=== PATIENT | male | born 2000 | race Hispanic/Latino ===

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

== ENCOUNTER 2018-02-27 19:40 | Emergency (ER) | payer BC ==
[2018-02-27 19:45] VITALS: BMI 24.4
[2018-02-27 19:56] VITALS: TEMP 98.1
[2018-02-27] MEDS ORDERED: levETIRAcetam 1,000 MG in Sodium Chloride 0.9% 100 ML IV ONE (19:56)
[2018-02-27] MEDS ORDERED: Sodium Chloride 0.9% 1,000 ML IV STA (19:56)
--- NOTE | 2018-02-27 20:01 | ED PDOC ---
Arrival/HPI - General Historian: Patient, Parent, Family, EMS EM Caveat: Other (post ictal) <Artie Nguyễn - Last Filed: 02/27/18 20:40> <Suhas Andrade - Last Filed: 02/27/18 23:14> - General Time Seen by Provider: 02/27/18 19:53 - History of Present Illness Narrative History of Present Illness (Text): 02/27/18 19:58 17 y/o male, FS 115, pmh including seizure which he is on keppra 500mg po bid but non compliance, neurologist Dr. Reinoso from [place], [facility], postictal stage upon arrival, biba for seizure episode about 1 hour ago. Pt. was found sitting on the chair at work, had jerking seizure episode at work which he fall from the chair and fall to the ground, episode lasted couple minutes, woke up and noted to be confused when ambulance arrive. Pt. has no alcohol or drug abuse history except he smokes marijuanna occasionally. Pt. has no recent head or neck injury prior to the seizure, no chest pain or shortness of breath, no rash, no other medical or psychological complaints. Note: pt. has not gotten his license yet as per mother so he is not driving. ( Artie Nguyễn) Past Medical History - Provider Review Nursing Documentation Reviewed: Yes - Psychiatric Hx Substance Use: Yes (xanax,marijuana) <rAtie Nguyễn - Last Filed: 02/27/18 20:40> Family/Social History - Physician Review Nursing Documentation Reviewed: Yes Family/Social History: Unknown Family HX Smoking Status: Light Smoker < 10 Cigarettes Daily Hx Alcohol Use: Yes Hx Substance Use: Yes (xanax,marijuana) <Artie Nguyễn - Last Filed: 02/27/18 20:40> Allergies/Home Meds <Artie Nguyễn - Last Filed: 02/27/18 20:40> <Suhas Andrade - Last Filed: 02/27/18 23:14> Allergies/Adverse Reactions: Allergies No Known Allergies Allergy (Verified 02/27/18 19:45) Review of Systems - Review of Systems Systems not reviewed;Unavailable: Other (postictal stage) Skin: absent: Rash, Pruritis <Artie Nguyễn - Last Filed: 02/27/18 20:40> Physical Exam Vital Signs Reviewed: Yes Temperature: Afebrile Blood Pressure: Normal Pulse: Regular Respiratory Rate: Normal Appearance: Positive for: Well-Appearing, Non-Toxic, Comfortable Pain Distress: None Mental Status: Positive for: other (postictal) - Systems Exam Head: Present: Tenderness (on the posterior occipital region). No: Contusion, Swelling, Ecchymosis, Abrasion, Laceration, Other Pupils: Present: PERRL Extroacular Muscles: Present: EOMI Conjunctiva: Present: Normal Ears: Present: NORMAL TM, Normal Canal. No: Erythema Mouth: Present: Moist Mucous Membranes Pharnyx: No: ERYTHEMA, EXUDATE, TONSILS ENLARGED Nose (External): Present: Atraumatic. No: Abrasion, Contusion, Laceration Nose (Internal): Present: Normal Inspection, No Active Bleeding. No: Rhinorrhea , Septal Hematoma, Epistaxis Neck: Present: Normal Range of Motion, Trachea Midline. No: Meningeal Signs, MIDLINE TENDERNESS, Paraspinal Tenderness, Lymphadenopathy Respiratory/Chest: Present: Clear to Auscultation, Good Air Exchange. No: Respiratory Distress, Accessory Muscle Use, Wheezes, Decreased Breath Sounds, Tender to Palpation Cardiovascular: Present: Regular Rate and Rhythm, Normal S1, S2. No: Murmurs Abdomen: No: Tenderness, Distention, Peritoneal Signs, Rebound, Guarding Back: Present: Normal Inspection Upper Extremity: Present: Normal Inspection, Normal ROM, NORMAL PULSES, Neurovascularly Intact, Capillary Refill < 2s. No: Cyanosis, Edema, Tenderness , Swelling, Deformity Lower Extremity: Present: Normal Inspection, NORMAL PULSES, Normal ROM, Neurovascularly Intact, Capillary Refill < 2 s. No: Edema, Tenderness, Swelling , Deformity Neurological: Present: GCS=15, CN II-XII Intact, Speech Normal, Motor Func Grossly Intact, Memory Normal Skin: Present: Warm, Dry, Normal Color. No: Rashes Psychiatric: Present: Alert, Other (+postictal) <Artie Nguyễn Q - Last Filed: 02/27/18 20:40> Vital Signs Temp Pulse Resp BP Pulse Ox 02/27/18 20:53 93 H 18 128/91 H 99 02/27/18 19:45 98.1 F 90 17 109/70 96 Medical Decision Making - EKG Interpretation Interpreted by ED Physician: Yes Type: 12 lead EKG Comparison: Com.w/previous EKG <Artie Nguyễn - Last Filed: 02/27/18 20:40> <Suhas Andrade - Last Filed: 02/27/18 23:14> ED Course and Treatment: 02/27/18 20:04 Differential: Seizure vs. Dehydration vs. hypoglycemia vs. drug abuse vs. ICH vs. electrolyte imbalance vs. cardiac arrythymia -Labs/ua/uds/alcohol/ck level -CT head/cervical -Chest xray -IVF/keppra 1gm IV -Fall precaution/aspiration precaution -filterer -Observe and reassess 02/27/18 20:06 -EKG: Sinus Tachycardia @ 109 BPM, no ST elevation or depression, no T wave inversion, compared with previous ekg. -Pt. feels nauseous, zofran 4mg IV ordered. 02/27/18 20:40 -Labs are significant for wbc 17.3 (VBG ordered), Anion gap 38 (salicylate and tylenol levels added), Mg 2.5 (normal bun/creatine and GFR level). -CT head/cervical ordered and pending result -Pending UA/UDS/VBG/Salicylate and tylenol level -Case discussed and endorsed to the incoming attending Dr. Min to follow up on the pending labs/radiology study and re-evaluation the patient. (Artie Nguyễn) 02/27/18 22:59 Shared decision making with pt and parent. Pt parent decided to f/u outpt with patient's neurologist, Dr. Reinoso. Pt's mother states patient has been using Xanax recently, which may have been a contributing factor to his seizure today. (Suhas Andrade) - Lab Interpretations Lab Results: 02/27/18 20:05 02/27/18 20:05 Lab Results 02/27/18 22:16: Urine Color Yellow, Urine Appearance Clear, Urine pH 6.0, Ur Specific Center >= 1.030, Urine Protein 30 H, Urine Glucose (UA) Negative, Urine Ketones Negative, Urine Blood Small H, Urine Nitrate Negative, Urine Bilirubin Negative, Urine Urobilinogen 0.2, Ur Leukocyte Esterase Negative, Urine RBC 0 - 2, Urine WBC 2 - 5, Ur Epithelial Cells 1 - 3, Urine Bacteria Mod 02/27/18 20:45: pO2 58 H, VBG pH 7.27 L, VBG pCO2 16.0 L*, VBG HCO3 7.3 L, VBG Total CO2 7.8 L, VBG O2 Sat (Calc) 93.6 H, VBG Base Excess -17.0 L, VBG Potassium 0.8 L*, Glucose 29 L*, Lactate 1.2, FiO2 21.0, Sodium 150.0 H, Chloride 135.0 H, Venous Blood Potassium 0.8 L* 02/27/18 20:05: Salicylates < 1 L, Acetaminophen < 10.0 L 02/27/18 20:05: Alcohol, Quantitative < 10 02/27/18 20:05: Sodium 145, Potassium 3.7, Chloride 103, Carbon Dioxide 8 L D, Anion Gap 38 H, BUN 11, Creatinine 1.2, Est GFR ( Amer) > 60, Est GFR ( Non-Af Amer) > 60, Random Glucose 118 H, Calcium 10.3, Magnesium 2.5 H, Total Bilirubin 0.8, AST 37, ALT 27, Alkaline Phosphatase 81, Total Creatine Kinase 224, Total Protein 9.0 H, Albumin 5.7 H, Globulin 3.3, Albumin/Globulin Ratio 1.8 02/27/18 20:05: WBC 17.3 H D, RBC 5.51, Hgb 17.9, Hct 51.5, MCV 93.5, MCH 32.5, MCHC 34.8, RDW 12.4, Plt Count 276, MPV 10.3, Gran % 60.0, Lymph % (Auto) 30.5, Dent % (Auto) 8.8 H, Eos % (Auto) 0.5 L, Baso % (Auto) 0.2, Gran # 10.40 H, Lymph # (Auto) 5.3 H, Dent # (Auto) 1.5 H, Eos # (Auto) 0.1, Baso # (Auto) 0.03 02/27/18 19:54: POC Glucose (mg/dL) 115 H - RAD Interpretation Radiology Orders: 02/27/18 19:56 CERVICAL SPINE W/O CONTRAST [CT] Stat HEAD W/O CONTRAST [CT] Stat 02/27/18 20:25 CHEST PORTABLE [RAD] Stat - EKG Interpretation EKG Interpretation (Text): 02/27/18 20:07 -EKG: Sinus Tachycardia @ 109 BPM, no ST elevation or depression, no T wave inversion, compared with previous ekg (Artie Nguyễn) - Medication Orders Current Medication Orders: Discontinued Medications Levetiracetam 1,000 mg/ Sodium (Chloride) 110 mls @ 440 mls/hr IV ONCE ONE Stop: 02/27/18 20:10 Last Admin: 02/27/18 20:19 Dose: 440 mls/hr eMAR Start Stop Document 02/27/18 20:19 SS (Rec: 02/27/18 20:23 SS [id number]) Intravenous Solution Start Date 02/27/18 Start Time 20:22 End Date 02/27/18 End time 20:37 Total Infusion Time 15 Sodium Chloride (Sodium Chloride 0.9%) 1,000 mls @ 999 mls/hr IV .Q1H1M STA Stop: 02/27/18 20:56 Last Admin: 02/27/18 20:23 Dose: 999 mls/hr eMAR Start Stop Document 02/27/18 20:23 SS (Rec: 02/27/18 20:23 SS [id number]) Intravenous Solution Start Date 02/27/18 Start Time 20:23 End Date 02/27/18 End time 21:24 Total Infusion Time 61 Ondansetron HCl (Zofran Inj) 4 mg IVP STAT STA Stop: 02/27/18 20:25 Last Admin: 02/27/18 20:40 Dose: 4 mg IVP Administration Document 02/27/18 20:40 SS (Rec: 02/27/18 20:40 SS [id number]) Charges for Administration # of IVP Administrations 1 - [place] / [place] HISTORY PROFESSOR / Resident Statement MD/DO has reviewed & agrees with the documentation as recorded. <Artie Nguyễn - Last Filed: 02/27/18 20:40> Disposition/Present on Arrival - Present on Arrival Any Indicators Present on Arrival: No History of DVT/PE: No History of Uncontrolled Diabetes: No Urinary Catheter: No History of Decub. Ulcer: No History Surgical Site Infection Following: None - Disposition Have Diagnosis and Disposition been Completed?: Yes Disposition Time: 20:45 <Artie Nguyễn - Last Filed: 02/27/18 20:40> - Disposition Patient Plan: Discharge <Suhas Andrade - Last Filed: 02/27/18 23:14> - Disposition Diagnosis: Seizure, Fall, Head injury Disposition: HOME/ ROUTINE Patient Problems: Current Active Problems Problem Status Onset Seizure Acute Fall Acute Head injury Acute Condition: GOOD Discharge Instructions (ExitCare): Seizures, Adult (DC), Concussion, Adult (DC) Referrals: Andrez Lerma MD [Staff Provider] - Follow up with primary Forms: [employer] ([place]an), WORK NOTE
[2018-02-27 20:19] LABS: BASO # 0.03 K/mm3 (0.0-2.0); BASO % 0.2 % (0.0-3.0); EOS # 0.1 (0.0-0.7); EOS % 0.5 % (1.5-5.0); GRAN # 10.4 (1.4-6.5); HEMOGLOBIN 17.9 g/dL (14.0-18.0); LYMPH # 5.3 (1.2-3.4); LYMPH % 30.5 % (22.0-35.0); MEAN CELL VOLUME 93.5 fl (80.0-105.0); MEAN CORPUSCULAR HEMOGLOBIN 32.5 pg (25.0-35.0); MEAN CORPUSCULAR HGB CONC 34.8 g/dl (31.0-37.0); MEAN PLATELET VOLUME 10.3 fl (7.0-11.0); MONO # 1.5 (0.1-0.6); MONO % 8.8 % (1.0-6.0); RBC 5.51 10^6/uL (3.5-6.1); RED CELL DISTRIBUTION WIDTH 12.4 % (11.5-14.5); WHITE BLOOD COUNT 17.3 10^3/ul (4.5-11.0)
[2018-02-27 20:27] LABS: ALB/GLOB RATIO 1.8 (1.1-1.8); ALBUMIN 5.7 g/dL (3.0-4.8); ALT/SGPT 27 U/L (7-56); AST/SGOT 37 U/L (17-59); BLOOD UREA NITROGEN 11 mg/dL (7-21); CALCIUM 10.3 mg/dL (8.4-10.5); GFR NON-AFRICAN AMERICAN > 60
[2018-02-27 20:54] VITALS: RESP 18
[2018-02-27 20:59] LABS: VENOUS BLOOD GAS PO2 58 mm/Hg (30-55); VENOUS BLOOD PH 7.27 (7.32-7.43)
[2018-02-27 21:13] LABS: ACETAMINOPHEN < 10.0 ug/ml (10.0-20.0); SALICYLATE < 1 mg/dL (2.0-20.0)
[2018-02-27 22:29] LABS: URINE BILIRUBIN NEGATIVE (NEGATIVE); URINE BLOOD SMALL (NEGATIVE); URINE GLUCOSE (UA) NEGATIVE (NEGATIVE); URINE LEUKOCYTE ESTERASE NEGATIVE Leu/uL (NEGATIVE); URINE PROTEIN 30 mg/dL (<30 mg/dL); URINE UROBILINOGEN 0.2 E.U./dL (<1 E.U./dL)
[2018-02-27 22:33] LABS: URINE APPEARANCE CLEAR (CLEAR); URINE COLOR YELLOW (YELLOW)
[2018-02-27 22:46] LABS: URINE BACTERIA MOD (NEG); URINE RBC 0 - 2 /hpf (0-2)
[2018-02-27 23:16] VITALS: BP 124/60; PULSE 87
[2018-02-27 23:24] VITALS: O2SAT 99
[2018-02-28 00:10] LABS: BARBITURATES, UR NEGATIVE (NEGATIVE); BENZODIAZEPINES, UR POSITIVE (NEGATIVE); OPIATES, UR NEGATIVE (NEGATIVE); PHENCYCLIDINE, UR NEGATIVE (NEGATIVE)
--- NOTE | 2018-02-28 08:29 | CT ---
Date of service: 02/27/2018 PROCEDURE: CT HEAD WITHOUT CONTRAST. HISTORY: seizure, fall COMPARISON: 08/20/2016 TECHNIQUE: Axial computed tomography images were obtained through the head/brain without intravenous contrast. Radiation dose: Total exam DLP = 958 mGy-cm. This CT exam was performed using one or more of the following dose reduction techniques: Automated exposure control, adjustment of the mA and/or kV according to patient size, and/or use of iterative reconstruction technique. FINDINGS: HEMORRHAGE: No intracranial hemorrhage. BRAIN: No mass effect or edema. No atrophy or chronic microvascular ischemic changes. VENTRICLES: Unremarkable. No hydrocephalus. CALVARIUM: Unremarkable. PARANASAL SINUSES: Unremarkable as visualized. No significant inflammatory changes. MASTOID AIR CELLS: Unremarkable as visualized. No inflammatory changes. OTHER FINDINGS: The report concurs with the preliminary [facility] report IMPRESSION: No acute findings
--- NOTE | 2018-02-28 08:32 | CT ---
Date of service: 02/27/2018 PROCEDURE: CT Cervical Spine without contrast HISTORY: seizure, fall COMPARISON: None available. TECHNIQUE: Axial computed tomography images were obtained of the cervical spine without the use of intravenous contrast. Coronal and sagittal reformatted images were created and reviewed. Radiation dose: Total exam DLP = 607 mGy-cm. This CT exam was performed using one or more of the following dose reduction techniques: Automated exposure control, adjustment of the mA and/or kV according to patient size, and/or use of iterative reconstruction technique. FINDINGS: VERTEBRAE: No fracture. Normal alignment. No destructive bony lesion. DISCS/SPINAL CANAL/NEURAL FORAMINA: No significant central canal or neural foraminal stenosis. Discs heights are grossly preserved. PARASPINAL SOFT TISSUES: Unremarkable. OTHER FINDINGS: The report concurs with the preliminary [facility] report IMPRESSION: No acute findings
--- NOTE | 2018-02-28 09:24 | RAD ---
Date of service: 02/27/2018 HISTORY: medical clearance COMPARISON: 08/20/2016 FINDINGS: LUNGS: No active pulmonary disease. PLEURA: No significant pleural effusion identified, no pneumothorax apparent. CARDIOVASCULAR: Normal. OSSEOUS STRUCTURES: No significant abnormalities. VISUALIZED UPPER ABDOMEN: Normal. OTHER FINDINGS: None. IMPRESSION: No active disease.
--- NOTE | 2018-02-28 16:15 | CARD ---
APPROVED REPORT Date of service: 02/27/2018 EKG Measurement Heart [id number] <Conclusion> Sinus tachycardia Otherwise normal ECG
== END 2018-02-27 23:23 | disposition home or self-care (01) ==
LOC: ED 19:40
DX: R56.9 Unspecified convulsions (principal); S09.90XA Unspecified injury of head, initial encounter; W07.XXXA Fall from chair, initial encounter; Y99.0 Civilian activity done for income or pay
CPT/HCPCS: 70450; 71045; 72125; 80053; 81001; 82550; 82803; 82948; 83735; 85025; 93005; 96361; 96374; 96375; 99285; G0480; J1953; J2405; J7030

== ENCOUNTER 2018-07-19 12:11 | Emergency (ER) | payer BC ==
[2018-07-19 12:25] VITALS: BMI 24.3
[2018-07-19 12:29] VITALS: RESP 18; TEMP 98.4; O2SAT 98
--- NOTE | 2018-07-19 12:41 | ED PDOC ---
Arrival/HPI - General Chief Complaint: Pain, Chronic Historian: Patient - History of Present Illness Narrative History of Present Illness (Text): 07/19/18 12:39. 17 y/o male, pmh including seizure, nkda, c/o neck pain since 02/2018. Pt. stated that he has chronic seizure, following up by neurologist and his pcp, stated that he has chronic neck pain since 02/2018, never told the pcp to get xray and would like to have xray performed here, no numbness or tingling, non- radiating, no palpitation, no change in vision, no rash, no other medical or psychological complaints. Past Medical History - Provider Review Nursing Documentation Reviewed: Yes - Infectious Disease Hx of Infectious Diseases: None - Cardiac Hx Cardiac Disorders: No - Pulmonary Hx Respiratory Disorders: No - Neurological Hx Neurological Disorder: Yes Hx Seizures: Yes - HEENT Hx HEENT Disorder: No - Renal Hx Renal Disorder: No - Endocrine/Metabolic Hx Endocrine Disorders: No - Hematological/Oncological Hx Blood Disorders: No - Integumentary Hx Dermatological Disorder: No - Musculoskeletal/Rheumatological Hx Musculoskeletal Disorders: No - Gastrointestinal Hx Gastrointestinal Disorders: No - Genitourinary/Gynecological Hx Genitourinary Disorders: No - Psychiatric Hx Psychophysiologic Disorder: No Hx Substance Use: Yes (xanax, medical marijuana) Family/Social History - Physician Review Nursing Documentation Reviewed: Yes Family/Social History: Unknown Family HX Smoking Status: Light Smoker < 10 Cigarettes Daily Hx Alcohol Use: Yes Frequency of alcohol use: Socially Hx Substance Use: Yes (xanax, medical marijuana) Allergies/Home Meds Allergies/Adverse Reactions: Allergies No Known Allergies Allergy (Verified 02/27/18 19:45) Review of Systems - Review of Systems Constitutional: absent: Fatigue, Fevers Eyes: absent: Vision Changes ENT: absent: Hearing Changes Respiratory: absent: SOB, Cough Cardiovascular: absent: Chest Pain Gastrointestinal: absent: Abdominal Pain, Nausea, Vomiting Musculoskeletal: Neck Pain. absent: Arthralgias, Back Pain, Joint Swelling, Myalgias Skin: absent: Rash, Pruritis Neurological: absent: Headache Psychiatric: absent: Anxiety, Depression, Suicidal Ideation Physical Exam Vital Signs Reviewed: Yes Vital Signs Temp Pulse Resp BP Pulse Ox 07/19/18 12:28 98.4 F 89 18 118/82 98 Temperature: Afebrile Blood Pressure: Normal Pulse: Regular Respiratory Rate: Normal Appearance: Positive for: Well-Appearing, Non-Toxic, Comfortable Pain Distress: Mild Mental Status: Positive for: Alert and Oriented X 3 - Systems Exam Head: Present: Atraumatic, Normocephalic Pupils: Present: PERRL Extroacular Muscles: Present: EOMI Conjunctiva: Present: Normal Mouth: Present: Moist Mucous Membranes Nose (External): Present: Atraumatic. No: Abrasion, Contusion, Laceration Nose (Internal): Present: Normal Inspection, No Active Bleeding. No: Edematous, Rhinorrhea, Septal Deviation, Septal Hematoma, Epistaxis Neck: Present: Normal Range of Motion, Trachea Midline. No: Meningeal Signs, MIDLINE TENDERNESS, Paraspinal Tenderness, Lymphadenopathy Respiratory/Chest: Present: Clear to Auscultation, Good Air Exchange. No: Respiratory Distress, Accessory Muscle Use, Wheezes, Decreased Breath Sounds, Ra les, Retracting, Rhonchi, Tachypneic, Tender to Palpation Cardiovascular: Present: Regular Rate and Rhythm, Normal S1, S2. No: Murmurs Abdomen: No: Tenderness, Distention, Peritoneal Signs, Rebound, Guarding Back: Present: Normal Inspection Upper Extremity: Present: Normal Inspection, Normal ROM, NORMAL PULSES. No: Cyanosis, Edema, Tenderness, Swelling, Deformity Lower Extremity: Present: Normal Inspection, NORMAL PULSES, Normal ROM, Neurovascularly Intact, Capillary Refill < 2 s. No: Edema, Tenderness, Swelling, Deformity Neurological: Present: GCS=15, CN II-XII Intact, Speech Normal, Motor Func Grossly Intact, Gait Normal, Memory Normal Skin: Present: Warm, Dry, Normal Color. No: Rashes Psychiatric: Present: Alert, Oriented x 3, Normal Insight, Normal Concentration Medical Decision Making ED Course and Treatment: 07/19/18 12:42 -xrays -pt. refused pain meds 07/19/18 14:13 -Cervical spine xray: ER wet read: no fracture or subluxation. -Thoracic spine xray: ER wet read: no fracture or subluxation -Pt. has no focal neurological deficits. -Discharge home with duexis, flexeril, bed rest, follow up with your own pmd and orthopedic within 2 days, return to the ER for any new or worsening signs or symptoms. - RAD Interpretation Radiology Orders: 07/19/18 12:37 CERVICAL SPINE >18YR W/OBLIQUE [RAD] Stat DORSAL (THORACIC) SPINE [RAD] Stat Cervical xray: Thoracic spine xray: Date of service: 07/19/2018 HISTORY: pain since 02/2018 COMPARISON: No prior. FINDINGS: BONES: Alignment maintained. No fracture. Mild curvature DISC SPACES: Normal. SOFT TISSUES: Normal. OTHER FINDINGS: None. IMPRESSION: No acute findings Net Developer Contract: Radiologist - PA / [employer] / Resident Statement MD/ has reviewed & agrees with the documentation as recorded. Disposition/Present on Arrival - Present on Arrival Any Indicators Present on Arrival: No History of DVT/PE: No History of Uncontrolled Diabetes: No Urinary Catheter: No History of Decub. Ulcer: No History Surgical Site Infection Following: None - Disposition Have Diagnosis and Disposition been Completed?: Yes Diagnosis: Chronic neck pain Disposition: HOME/ ROUTINE Disposition Time: 14:14 Patient Plan: Discharge Condition: IMPROVED Additional Instructions: -Discharge home with duexis, flexeril, bed rest, follow up with your own pmd and orthopedic within 2 days, return to the ER for any new or worsening signs or symptoms. Prescriptions: Cyclobenzaprine HCl 10 mg PO TID PRN #21 tablet PRN Reason: Other Ibuprofen/Famotidine [Duexis 26.6 mg-800 mg] 1 tab PO TID PRN #21 tab PRN Reason: Other Referrals: Berta Rousseau MD [Primary Care Provider] - Follow up with primary Ramez Leroy III, MD [Medical Doctor] - Follow up with primary Forms: [employer] ([place]ik), WORK NOTE
--- NOTE | 2018-07-19 14:04 | RAD ---
Date of service: 07/19/2018 PROCEDURE: Cervical Spine Radiographs. HISTORY: Pain. COMPARISON: None available. FINDINGS: BONES: Alignment maintained. No fracture. Dens Intact. DISC SPACES: Normal. SOFT TISSUES: Normal. No prevertebral soft tissue swelling. OTHER FINDINGS: None. IMPRESSION: Normal cervical spine radiographs
--- NOTE | 2018-07-19 14:05 | RAD ---
Date of service: 07/19/2018 HISTORY: pain since 02/2018 COMPARISON: No prior. FINDINGS: BONES: Alignment maintained. No fracture. Mild curvature DISC SPACES: Normal. SOFT TISSUES: Normal. OTHER FINDINGS: None. IMPRESSION: No acute findings
[2018-07-19 14:21] VITALS: BP 120/76; PULSE 82
== END 2018-07-19 14:23 | disposition home or self-care (01) ==
LOC: ED 12:11
DX: G89.29 Other chronic pain (principal); M54.2 Cervicalgia; F17.210 Nicotine dependence, cigarettes, uncomplicated